=== PATIENT | male | born 1980 | race Caucasian/White ===

== ENCOUNTER 2021-09-08 07:12 | Emergency (ER) | payer SELFPAY ==
[~2021-09-08] VITALS: Ht 175.3 cm; Wt 97.3 kg
[2021-09-08 07:28] VITALS: BP 126/73
[2021-09-08] MEDS ORDERED: KETO15CR2 TP (07:53)
== END 2021-09-08 08:09 | disposition home or self-care (01) ==
LOC: ER 07:12
DX: B35.3 Tinea pedis (principal); Z98.890 Other specified postprocedural states
CPT/HCPCS: 99283

== ENCOUNTER 2024-09-25 11:49 | Inpatient (IN) | payer OTHER ==
[~2024-09-25] VITALS: Ht 172.7 cm; Wt 98.9 kg
[~2024-09-25 11:49] MED LIST: KETO15CR2 TP
[2024-09-25 12:08] LABS: BASOPHILS % 1.2 % (0.0-2.0); EOSINOPHILS % 2.9 % (0.0-5.0); HEMATOCRIT. 47.7 % (42.0-52.0); HEMOGLOBIN. 15.8 g/dL (14.0-18.0); LYMPHOCYTES % 51.5 % (20.0-50.0); MEAN CORPUSCULAR HEMOGLOBIN 28.4 pg (28.0-32.0); MEAN CORPUSCULAR HGB CONC 33.2 g/dL (31.0-37.0); MEAN CORPUSCULAR VOLUME 85.6 fL (80.0-94.0); MONOCYTES % 8.7 % (2.0-8.0); NEUTROPHILS % 35.7 % (40.0-76.0); PLATELET 215 x1000/uL (130-400); RED BLOOD CELL COUNT 5.57 mill/uL (4.7-6.1); RED CELL DISTRIBUTION WIDTH 14.4 % (11.6-14.6); WHITE BLOOD COUNT 4.5 x1000/uL (4.5-11.0)
[2024-09-25 12:23] LABS: CHLORIDE 107 mEq/L (98-107); SODIUM 141 mEq/L (136-145)
[2024-09-25 12:24] LABS: CALCIUM 9.7 mg/dL (8.7-10.4); CARBON DIOXIDE 27 mEq/L (21-32)
[2024-09-25 12:29] LABS: CREATININE 1.3 mg/dL (0.6-1.3); GLUCOSE 104 mg/dL (70-105); UREA NITROGEN BLOOD 14 mg/dL (9-23)
[2024-09-25] MEDS: SODIUM CHLORIDE 0.9% 1,000 ML IV ONE (12:29)
[2024-09-25 12:31] LABS: TROPONIN I HIGH SENSITIVITY 17 ng/L (3.0-53)
[2024-09-25 15:28] LABS: TROPONIN I HIGH SENSITIVITY 1087 ng/L (3.0-53)
[2024-09-25 16:28] VITALS: BP 114/65; PULSE 56; RESP 18; TEMP 36.6; O2SAT 100
[2024-09-25] MEDS ORDERED: ONDANSETRON HCL 4MG/2ML INJ IV PRN (16:45)
[2024-09-25] MEDS: METOPROLOL TARTRATE 25MG TABLET PO SCH (16:45)
[2024-09-25] MEDS: ACETAMINOPHEN 325MG TABLET PO PRN (17:04)
[2024-09-25 18:08] VITALS: BP 114/62; PULSE 18; RESP 18; TEMP 36.3
[2024-09-25 20:00] VITALS: BP 136/68; PULSE 57; RESP 20; TEMP 36.4; O2SAT 100
[2024-09-26] VITALS: BP_SYST 116; BP_SYST 133; BP_DIAS 37; BP_DIAS 80; PULSE 58; PULSE 85; RESP 20; TEMP 36.4; TEMP 37; O2SAT 96; O2SAT 99
[2024-09-26 01:58] LABS: *AMPHETAMINES SCREEN URINE NEGATIVE (NEGATIVE)
[2024-09-26 01:59] LABS: *BARBITURATES SCREEN URINE NEGATIVE (NEGATIVE); *BENZODIAZEPINES SCREEN URINE NEGATIVE (NEGATIVE); *COCAINE SCREEN URINE NEGATIVE (NEGATIVE); CANNABINOID URINE SCREEN NEGATIVE (NEGATIVE); ECSTASY MDMA SCREEN URINE NEGATIVE (NEGATIVE); METHADONE URINE SCREEN NEGATIVE (NEGATIVE); OPIATES URINE SCREEN NEGATIVE (NEGATIVE); PHENCYCLIDINE URINE SCREEN NEGATIVE (NEGATIVE)
[2024-09-26 04:00] VITALS: BP 99/61; PULSE 62; RESP 20; TEMP 36.8; O2SAT 98
[2024-09-26 08:00] VITALS: BP 105/60; PULSE 57; RESP 18; TEMP 36.5; O2SAT 100
[2024-09-26] MEDS ORDERED: METO25TA6 MT (11:19)
[2024-09-26 12:00] VITALS: BP 104/57; PULSE 56; RESP 18; TEMP 36.6; O2SAT 98
[2024-09-26 12:27] VITALS: BP 104/57; PULSE 56; TEMP 97.9; O2SAT 98
[2024-09-26 12:31] VITALS: BP 104/57; PULSE 57; TEMP 97.9; O2SAT 98
== END 2024-09-26 13:42 | disposition home or self-care (01) | DRG 201 ==
LOC: ER 11:49 → 7WST 13:13 → EDBEDREQTM 13:45 → EDBEDREQ 13:45 → ENRESERV 13:52
PROVIDERS: ADMIT Internal Medicine; ATTEND Internal Medicine
DX: I47.10 Supraventricular tachycardia, unspecified (principal)
CPT/HCPCS: 36415; 71045; 80048; 80305; 83880; 84484; 85025; 93005; 96360; 99285; J7030